=== PATIENT | male | born 1975 | race Caucasian/White ===

== ENCOUNTER 2020-04-19 19:43 | Observation (INO) | payer BC ==
[2020-04-19 21:36] LABS: Absolute Lymphocytes (CBC) 3.6 K/uL (0.7-4.9); Basophils % 0.4 % (0-1.3); Hematocrit 41.5 % (39.6-49.0); MPV 8.3 fL (7.6-11.3); RBC Red Blood Cell Count 4.75 M/uL (4.33-5.43)
[2020-04-19 21:40] LABS: Protime INR 1.03
[2020-04-19 22:05] LABS: ALT/SGPT 47 U/L (12-78); AST/SGOT 22 U/L (15-37); Albumin 3.9 g/dL (3.4-5.0); Alkaline Phosphatase 58 U/L (45-117); BUN Blood Urea Nitrogen 14 mg/dL (7-18); Bicarbonate 26 mmol/L (21-32); Bilirubin Direct 0.1 mg/dL (0-0.2); Bilirubin Total 0.3 mg/dL (0.2-1.0); Glucose Level 103 mg/dL (74-106); Magnesium 2.4 mg/dL (1.8-2.4); NT PRO-BNP 80 pg/mL (<125); Potassium 3.5 mmol/L (3.5-5.1); Protein, Total 7.6 g/dL (6.4-8.2); Sodium Level 140 mmol/L (136-145); Troponin (Emerg Dept Use Only) < 0.02 ng/mL (0.0-0.045)
--- NOTE | 2020-04-19 22:24 | EDPHYS ---
Physician Documentation [facility] Name: Hugo Salinas Age: 44 yrs Sex: Male : 1975 Arrival Date: 04/19/2020 Time: 19:45 Bed 20 Private MD: ED Physician Joshua Mustafa HPI: 04/19 21:18 This 44 yrs old Male presents to ER via Ambulatory with complaints of High kb Blood Pressure. 21:18 The patient has elevated blood pressure and discovered this at home, with a home kb device. Onset: The symptoms/episode began/occurred this morning, at 08:30. Associated signs and symptoms: Pertinent positives: chest pain, Pertinent negatives: dizziness, dyspnea, headache, lightheadedness, nausea, visual changes, vomiting, weakness. Severity of symptoms: At its worst the blood pressure was moderate, in the emergency department the blood pressure is improved. The patient has not experienced similar symptoms in the past. The patient has not recently seen a physician. Pt states he started prednisone and augmentin yesterday for an ear infection. STarted feeling flush with chest pressure this morning around 8:30-9. Started checking his blood pressure at noon and it has been high all day, then it was 200/100 so made him come in to get evaluated. . Historical: - Allergies: 19:51 No Known Allergies; ll1 - PMHx: 19:51 Hypertension; Heart Murmur; ll1 - Immunization history:: Flu vaccine is not up to date. - Social history:: Smoking status: Patient/guardian denies using tobacco, Stopped _ months ago 9 Patient uses alcohol, only on a social basis. Patient/guardian denies using street drugs. ROS: 21:01 Constitutional: Negative for fever, chills, and weight loss, Respiratory: Negative for kb shortness of breath, cough, wheezing, and pleuritic chest pain, Abdomen/GI: Negative for abdominal pain, nausea, vomiting, diarrhea, and constipation, Back: Negative for injury and pain, MS/Extremity: Negative for injury and deformity, Skin: Negative for injury, rash, and discoloration, Neuro: Negative for headache, weakness, numbness, tingling, and seizure. 21:01 Cardiovascular: Positive for chest pain, Negative for edema, orthopnea, palpitations, paroxysmal nocturnal dyspnea. Exam: 21:01 Constitutional: This is a well developed, well nourished patient who is awake, alert, kb and in no acute distress. Head/Face: Normocephalic, atraumatic. Chest/axilla: Normal chest wall appearance and motion. Nontender with no deformity. No lesions are appreciated. Cardiovascular: Regular rate and rhythm with a normal S1 and S2. No gallops, murmurs, or rubs. Normal PMI, no JVD. No pulse deficits. Respiratory: Lungs have equal breath sounds bilaterally, clear to auscultation and percussion. No rales, rhonchi or wheezes noted. No increased work of breathing, no retractions or nasal flaring. Abdomen/GI: Soft, non-tender, with normal bowel sounds. No distension or tympany. No guarding or rebound. No evidence of tenderness throughout. Skin: Warm, dry with normal turgor. Normal color with no rashes, no lesions, and no evidence of cellulitis. MS/ Extremity: Pulses equal, no cyanosis. Neurovascular intact. Full, normal range of motion. Neuro: Awake and alert, GCS 15, oriented to person, place, time, and situation. Cranial nerves II-XII grossly intact. Motor strength 5/5 in all extremities. Sensory grossly intact. Cerebellar exam normal. Normal gait. 22:24 ECG was reviewed by the Attending Physician. Vital Signs: 19:49 BP 180 / 76; Pulse 111; Resp 18; Temp 98.3; Pulse Ox 100% ; Pain 1/10; ll1 20:30 BP 153 / 73; Pulse 101; Resp 17; Pulse Ox 99% ; ah 21:15 BP 141 / 77; Pulse 73; Resp 23; Pulse Ox 100% ; ah 21:44 BP 131 / 75; Pulse 74; Resp 17; Pulse Ox 99% ; ll1 23:33 BP 139 / 79; Pulse 66; Resp 18; Pulse Ox 99% ; ll1 04/20 00:19 BP 123 / 83; Pulse 65; Resp 18; Pulse Ox 100% on R/A; mg2 00:42 BP 120 / 68; Pulse 62; Resp 18; Temp 98.6; Pulse Ox 100% on R/A; mg2 MDM: 04/19 20:22 Patient medically screened. kb 21:01 Data reviewed: vital signs, nurses notes. Data interpreted: Pulse oximetry: on room air kb is 99 %. Interpretation: normal. 22:20 Counseling: I had a detailed discussion with the patient and/or guardian regarding: the kb historical points, exam findings, and any diagnostic results supporting the discharge/admit diagnosis, lab results, radiology results, the need for further work-up and treatment in the hospital. Physician consultation: Alexandre Dunham was contacted at 22:21, regarding admission, to the telemetry unit. patient's condition, and will see patient in ED, shortly. 22:23 ED course: Pt has strong family history of IN. Uncle's first IN was at age 40, father's kb first IN at age 60. Discussed with ERP and recommends admission for further cardiac evaluation. 04/19 20:27 Order name: Basic Metabolic Panel kb 04/19 20: Order name: CBC with Diff; Complete Time: 21:44 kb 04/19 20:27 Order name: LFT's; Complete Time: 22:16 kb 04/19 20:27 Order name: Magnesium; Complete Time: 22:16 kb 04/19 20:27 Order name: NT PRO-BNP; Complete Time: 22:16 kb 04/19 20:27 Order name: PT-INR; Complete Time: 21:44 kb 04/19 20:27 Order name: Troponin (emerg Dept Use Only); Complete Time: 22:16 kb 04/19 20:27 Order name: XRAY Chest (1 view) kb 04/19 20:27 Order name: EKG; Complete Time: 20:28 kb 04/19 20:27 Order name: Cardiac monitoring; Complete Time: 20:44 kb 04/19 20:27 Order name: EKG - Nurse/Tech; Complete Time: 20:44 kb 04/19 20:27 Order name: IV Saline Lock; Complete Time: 21:19 kb 04/19 20:28 Order name: Basic Metabolic Panel; Complete Time: 22:16 EDMS 04/19 20:27 Order name: Labs collected and sent; Complete Time: 21:19 kb 04/19 20:27 Order name: O2 Per Protocol; Complete Time: 20:44 kb 04/19 20:27 Order name: O2 Sat Monitoring; Complete Time: 20:44 kb EC:24 Rate is 78 beats/min. Rhythm is regular. QRS [place] is Normal. MT interval is normal at kb 144 msec. QRS interval is normal at 96 msec. QT interval is normal at 384 msec. Administered Medications: : Not Given (Took aspirin 650 mg PO at home at 1930 tonight. SUMIT Byrnes informed.): ll1 Aspirin Chewable Tablet 324 mg PO once; 81 mg tablets x 4 Disposition: 04/20 03:52 Co-signature as Attending Physician, Joshua Mustafa MD I agree with the assessment and tw4 plan of care. Disposition: 04/19/20 22:23 Hospitalization ordered by Alexandre Dunham for Observation. Preliminary diagnosis is Chest pain, unspecified. - Bed requested for Telemetry/MedSurg (observation). - Status is Observation. mg2 - Condition is Stable. - Problem is new. - Symptoms are unchanged. Signatures: Dispatcher [employer] EDMS Suzy Hill, SUMIT-C SUMIT-CkBere Mae, RN RN cg Joshua Mustafa MD MD tw4 Elias Goodman RN RN mg2 Obey Garner RN RN ll1 Corrections: (The following items were deleted from the chart) 00:32 04/19 22:23 Hospitalization Ordered by Alexandre Dunham for Observation. Preliminary cg diagnosis is Chest pain, unspecified. Bed requested for Telemetry/MedSurg (observation). Status is Observation. Condition is Stable. Problem is new. Symptoms are unchanged. kb 04/20 01:19 00:32 04/19/2020 22:23 Hospitalization Ordered by Alexandre Dunham for Observation. mg2 Preliminary diagnosis is Chest pain, unspecified. Bed requested for Telemetry/MedSurg (observation). Status is Observation. Condition is Stable. Problem is new. Symptoms are unchanged. cg
--- NOTE | 2020-04-19 22:24 | ER ---
Nurse's Notes [facility] Name: Hugo Salinas Age: 44 yrs Sex: Male : 1975 Arrival Date: 04/19/2020 Time: 19:45 Bed 20 Private MD: Diagnosis: Chest pain, unspecified Presentation: 04/19 19:49 Chief complaint: Patient states: High blood pressure for 1 days. On Augmentin for ear ll1 infection, started last night with steroid. BP 210/107 at home. Coronavirus screen: Proceed with normal triage. Patient denies a cough. Patient denies shortness of breath or difficulty breathing. Patient denies measured and/or subjective temperature greater than 100.4F prior to today's visit. Patient denies travel on a cruise ship or to a country the [facility] currently lists as an affected area. Patient denies contact with known and/or suspected case of COVID-19. Ebola Screen: Patient denies travel to an Ebola-affected area in the 21 days before illness onset. Initial Sepsis Screen: Does the patient meet any 2 criteria? HR > 90 bpm. No. Patient's initial sepsis screen is negative. Risk Assessment: Do you want to hurt yourself or someone else? Patient reports no desire to harm self or others. Onset of symptoms was April 19, 2020. 19:49 Method Of Arrival: Ambulatory ll1 19:49 Acuity: CRISTINA 2 ll1 20:47 Initial Sepsis Screen: Does the patient have a suspected source of infection? No. ah Patient's initial sepsis screen is negative. Historical: - Allergies: 19:51 No Known Allergies; ll1 - PMHx: 19:51 Hypertension; Heart Murmur; ll1 - Immunization history:: Flu vaccine is not up to date. - Social history:: Smoking status: Patient/guardian denies using tobacco, Stopped _ months ago 9 Patient uses alcohol, only on a social basis. Patient/guardian denies using street drugs. Screenin:47 Abuse screen: Denies threats or abuse. Nutritional screening: No deficits noted. Tuberculosis screening: No symptoms or risk factors identified. Fall Risk None identified. Assessment: 20:44 General: Appears uncomfortable, Behavior is calm, cooperative, appropriate for age. Pain: Complains of pain in chest Quality of pain is described as pressure, Pain began 0800 today Is continuous. Neuro: Level of Consciousness is awake, alert, obeys commands, Oriented to person, place, time, situation, Appropriate for age. Cardiovascular: Heart tones S1 S2 present Capillary refill < 3 seconds Patient's skin is warm and dry. Pulses are palpable in right radial artery and left radial artery Rhythm is sinus rhythm. Respiratory: Airway is patent Respiratory effort is even, unlabored, Respiratory pattern is regular, symmetrical. Derm: Skin is intact, is healthy with good turgor, Skin temperature is warm. 21:32 Reassessment: Patient and/or family updated on plan of care and expected duration. Pain ah level reassessed. Patient is alert, oriented x 3, equal unlabored respirations, skin warm/dry/pink. awaiting lab and radiology results. No needs voiced at this time. at bedside. 22:00 Reassessment: Patient appears in no apparent distress at this time. No changes from ll1 previously documented assessment. Patient and/or family updated on plan of care and expected duration. Pain level reassessed. Patient is alert, oriented x 3, equal unlabored respirations, skin warm/dry/pink. 23:00 Reassessment: Patient appears in no apparent distress at this time. No changes from ll1 previously documented assessment. Patient and/or family updated on plan of care and expected duration. Pain level reassessed. Patient is alert, oriented x 3, equal unlabored respirations, skin warm/dry/pink. Vital Signs: 19:49 BP 180 / 76; Pulse 111; Resp 18; Temp 98.3; Pulse Ox 100% ; Pain 1/10; ll1 20:30 BP 153 / 73; Pulse 101; Resp 17; Pulse Ox 99% ; ah 21:15 BP 141 / 77; Pulse 73; Resp 23; Pulse Ox 100% ; ah 21:44 BP 131 / 75; Pulse 74; Resp 17; Pulse Ox 99% ; ll1 23:33 BP 139 / 79; Pulse 66; Resp 18; Pulse Ox 99% ; ll1 04/20 00:19 BP 123 / 83; Pulse 65; Resp 18; Pulse Ox 100% on R/A; mg2 00:42 BP 120 / 68; Pulse 62; Resp 18; Temp 98.6; Pulse Ox 100% on R/A; mg2 ED Course: 04/19 19:45 Patient arrived in ED. cl3 19:51 Triage completed. ll1 19:52 Arm band placed on Patient placed in an exam room, on a stretcher. ll1 20:22 Suzy Hill FNP-C is [facility]. kb 20:22 Joshua Mustafa MD is Attending Physician. kb 20:44 Michelle Goins, RN is Primary Nurse. 20:47 Patient has correct armband on for positive identification. Bed in low position. Call light in reach. Side rails up X 1. Adult w/ patient. monitoring tech on. Pulse ox on. NIBP on. 20:51 XRAY Chest (1 view) In Process Unspecified. EDMS 21:05 Missed attempt(s): 20 gauge in right antecubital area. Bleeding controlled, band aid jp3 applied, catheter tip intact. 21:10 Missed attempt(s): 20 gauge in left antecubital area. Bleeding controlled, band aid jp3 applied, catheter tip intact. 21:25 Initial lab(s) drawn, by il, sent to lab. EKG done, by ED staff, reviewed by Suzy BIGGS. Inserted saline lock: 20 gauge in left hand, using aseptic technique. Blood collected. Patient maintains SpO2 saturation greater than 95% on room air. 21:43 Report received from Michelle Goins RN. ll1 22:22 Alexandre Dunham is Hospitalizing Provider. kb 23:34 No provider procedures requiring assistance completed. Patient admitted, IV remains in ll1 place. Administered Medications: 22:25 Not Given (Took aspirin 650 mg PO at home at 1930 tonight. SUMIT Byrnes informed.): ll1 Aspirin Chewable Tablet 324 mg PO once; 81 mg tablets x 4 Outcome: 22:23 Decision to Hospitalize by Provider. kb 04/20 00:49 Admitted to Med/surg accompanied by tech, via wheelchair, room 217, with chart, Report mg2 called to QUINTON Coughlin Condition: stable Instructed on the need for admit, Demonstrated understanding of instructions. 01:19 Patient left the ED. mg2 Signatures: Dispatcher [employer] EDVA Suzy Hill FNP-C FNP-Elias Alvarado RN RN mg2 Isma Casillas Charde 3 Michelle Goins RN RN Obey Garner RN RN ll1 Corrections: (The following items were deleted from the chart) 04/19 21:30 19:49 Chief complaint: Patient states: High blood pressure for 1 days. On Augmentin for ll1 ear infection, started last night with steroid. BP 210/107 ll1
--- NOTE | 2020-04-20 00:19 | P.HP ---
Certification for Inpatient Patient admitted to: Observation With expected LOS: <2 Midnights Practitioner: I am a practitioner with admitting privileges, knowledge of patient current condition, hospital course, and medical plan of care. Services: Services provided to patient in accordance with Admission requirements found in Title 42 Section 412.3 of the Code of Federal Regulations Patient History Date of Service: 04/19/20 Reason for admission: Chest discomfort, high blood pressure History of Present Illness: 44-year-old gentleman with no known past medical history presented emergency department due to high blood pressure recorded at home. Patient reports his systolic blood pressure was as high as 200. He was experiencing blurriness of vision along with chest discomfort. He describes this chest discomfort as heart burn. He denied any headache. He denied any nausea or vomiting. His systolic blood pressure in the ED was 200. EKG demonstrated left ventricular hypertrophy an inverted T-waves. His systolic blood pressure had improved to the 130s during my examination Patient is placed under observation for ACS rule out . Allergies No Known Allergies Allergy (Unverified 04/20/20 00:42) Home Medications: Amlodipine [Norvasc*] 5 mg PO DAILY #30 tab 04/20/20 Amoxicillin/Potassium Clav [Amox-Clav 875-125 mg Tablet] 1 each PO Q12H 04/20/20 Aspirin [Aspirin EC 81 MG] 81 mg PO DAILY #30 tablet. 04/20/20 - Past Medical/Surgical History -: None - Family History Father -: Heart disease - Social History Smoking Status: Former smoker Alcohol use: No CD- Drugs: No Place of Residence: Home Review of Systems Other: Except as documented, all other systems reviewed and negative. Physical Examination - Physical Exam General: Alert, In no apparent distress, Oriented x3 HEENT: Mucous membr. moist/pink Neck: Supple, JVD not distended Respiratory: Clear to auscultation bilaterally, Normal air movement Cardiovascular: No edema, Regular rate/rhythm, Normal S1 S2 Gastrointestinal: Normal bowel sounds, Soft and benign, Non-distended, No tenderness Musculoskeletal: No swelling, No erythema Integumentary: No rashes Neurological: Normal speech, Normal strength at 5/5 x4 extr - Studies Laboratory Data (last 24 hrs) 04/19/20 21:09: PT 12.2, INR 1.03 04/19/20 21:09: WBC 11.2 H, Hgb 13.9, Hct 41.5, Plt Count 257 04/19/20 21:09: Sodium 140, Potassium 3.5, BUN 14, Creatinine 1.02, Glucose 103, Magnesium 2.4, Total Bilirubin 0.3, AST 22, ALT 47, Alkaline Phosphatase 58 Assessment and Plan - Problems (Diagnosis) (1) Accelerated hypertension Current Visit: Yes Status: Acute (2) Chest discomfort Current Visit: Yes Status: Acute (3) Abnormal EKG Current Visit: Yes Status: Acute - Plan Place patient under observation. Trend troponin Obtain echocardiogram I suspect patient has longstanding hypertension leading to LVH Start amlodipine. Hydralazine p.r.n. for BP spikes. - Advance Directives Does patient have a Living Will: No Does patient have a Durable POA for Healthcare: No
[2020-04-20 02:36] VITALS: BMI 38.5
[2020-04-20 02:49] LABS: HDL Cholesterol 41 mg/dL (40-60); LDL Cholesterol, Calculated 147 (<130); Troponin I < 0.02 ng/mL (0.0-0.045)
--- NOTE | 2020-04-20 06:49 | EKG ---
Test Date: 2020-04-19 Test Time: 21:16:38 Bus Assistant: ALPESH MEASUREMENT RESULTS: Intervals: Rate: 78 TX: 144 QRSD: 96 QT: 384 QTc: 437 [place]: P: 44 TX: 144 QRS: 75 T: -42 INTERPRETIVE STATEMENTS: Normal sinus rhythm Possible Left atrial enlargement Left ventricular hypertrophy T wave abnormality, consider inferior ischemia T wave abnormality, consider anterolateral ischemia Abnormal ECG Compared to ECG 07/31/2009 19:49:30 No significant changes Electronically Signed On 04-20-20 06:47:54 CDT by Dioni Galicia
--- NOTE | 2020-04-20 07:11 | RAD REPORT ---
EXAM DESCRIPTION: RAD - Chest Single View - 04/19/2020 8:50 pm CLINICAL HISTORY: CHEST PAIN COMPARISON: Two view chest November 2019 TECHNIQUE: AP portable chest image was obtained 04/19/2020 8:50 pm . FINDINGS: Lungs are clear. Heart and vasculature are normal. No measurable pleural effusion and no p neumothorax. No acute bony abnormality seen. No acute aortic findings suspected. No significant erazo e from comparison. IMPRESSION: No acute cardiopulmonary process.
--- NOTE | 2020-04-20 07:43 | P.DS ---
Admission Date: 04/20/20 Discharge Date: 04/20/20 Disposition: ROUTINE DISCHARGE Reason for Admission: Chest discomfort, high blood pressure - Problems (1) Accelerated hypertension Status: Acute (2) Chest discomfort Status: Acute (3) Abnormal EKG Status: Acute Brief History of Present Illness: 44-year-old gentleman with no known past medical history presented emergency department due to high blood pressure recorded at home. Patient reports his systolic blood pressure was as high as 200. He was experiencing blurriness of vision along with chest discomfort. He describes this chest discomfort as heart burn. He denied any headache. He denied any nausea or vomiting. His systolic blood pressure in the ED was 200. EKG demonstrated left ventricular hypertrophy an inverted T-waves. His systolic blood pressure had improved to the 130s during my examination. Patient was placed under observation for ACS rule out . Hospital Course: Patient placed under observation. Troponin trended came back negative. His blood pressure fluctuated with monitoring. Lipid profile showed an LDL of 147. Lifestyle modification with diet and weight loss recommended. Target LDL of 100. Echocardiogram performed resulted normal EF and no wall motion abnormality. Patient was symptom-free during the hospital stay. He is deemed clinically stable for discharge. Vital Signs/Physical Exam: Temp Pulse Resp BP Pulse Ox 97.5 F 88 18 181/88 H 93 04/20/20 02:17 04/20/20 02:17 04/20/20 02:17 04/20/20 02:17 04/20/20 02:17 General: Alert, In no apparent distress HEENT: Mucous membr. moist/pink Neck: JVD not distended Respiratory: Clear to auscultation bilaterally, Normal air movement Cardiovascular: No edema, Regular rate/rhythm, Normal S1 S2 Gastrointestinal: Normal bowel sounds, Soft and benign, No tenderness Laboratory Data at Discharge: WBC 11.2 K/uL (4.3-10.9) H 04/19/20 21:09 Hgb 13.9 g/dL (13.6-17.9) 04/19/20 21:09 Hct 41.5 % (39.6-49.0) 04/19/20 21:09 Plt Count 257 K/uL (152-406) 04/19/20 21:09 PT 12.2 SECONDS (9.5-12.5) 04/19/20 21:09 INR 1.03 04/19/20 21:09 Sodium 140 mmol/L (136-145) 04/19/20 21:09 Potassium 3.5 mmol/L (3.5-5.1) 04/19/20 21:09 BUN 14 mg/dL (7-18) 04/19/20 21:09 Creatinine 1.02 mg/dL (0.55-1.3) 04/19/20 21:09 Glucose 103 mg/dL (74-106) 04/19/20 21:09 Magnesium 2.4 mg/dL (1.8-2.4) 04/19/20 21:09 Total Bilirubin 0.3 mg/dL (0.2-1.0) 04/19/20 21:09 AST 22 U/L (15-37) 04/19/20 21:09 ALT 47 U/L (12-78) 04/19/20 21:09 Alkaline Phosphatase 58 U/L (45-117) 04/19/20 21:09 Troponin I < 0.02 ng/mL (0.0-0.045) 04/20/20 05:40 Triglycerides 135 mg/dL (<150) 04/20/20 02:12 Cholesterol 215 mg/dL (<200) H 04/20/20 02:12 HDL Cholesterol 41 mg/dL (40-60) 04/20/20 02:12 Cholesterol/HDL Ratio 5.24 04/20/20 02:12 Home Medications: Amlodipine [Norvasc*] 5 mg PO DAILY #30 tab 04/20/20 Amoxicillin/Potassium Clav [Amox-Clav 875-125 mg Tablet] 1 each PO Q12H 04/20/20 Aspirin [Aspirin EC 81 MG] 81 mg PO DAILY #30 tablet. 04/20/20 New Medications: Aspirin [Aspirin EC 81 MG] 81 mg PO DAILY #30 tablet. Amlodipine [Norvasc*] 5 mg PO DAILY #30 tab Followup: Dioni Galicia MD [ACTIVE - CAN ADMIT] - (Call to make an appointment. )
[2020-04-20] MEDS ORDERED: ASPIRIN EC 81 MG TAB PO SCH (09:00)
[2020-04-20] MEDS ORDERED: ENOXAPARIN 40 MG/0.4 ML SQ SCH (09:00)
[2020-04-20] MEDS ORDERED: AMLODIPINE 5 MG TAB PO SCH (09:00)
[2020-04-20 11:50] VITALS: O2SAT 98
[2020-04-20 16:22] VITALS: BP 134/75; TEMP 97.9
--- NOTE | 2020-04-21 12:39 | CON ---
Date of Consultation: 04/20/2020 Reason For Consultation: Chest pain. History Of Present Illness: Mr. Salinas is a 44-year-old white male, has a strong family history of h eart disease. Has had family members who had heart attacks in the 40s. He has a history of hyperten colin and has been told that he had heart murmur and palpitations in the past. No previous cardiac wo rkup. He came into the emergency room with some substernal chest pressure, anxiety, and blood pressu re 200/100 in the emergency room. He was found to have an EKG showing left ventricular hypertrophy. He had a cholesterol of 215. His LDL was 147. He had a white count of 11,000. The rest of the blo od work was negative. He has recently had what sounds like a sinus or ear infection with stuffiness, but no fever and no chills. His chest pain was not exertional. It did not radiate. He did not hav e any nausea or vomiting or diaphoresis. Denied PND, orthopnea, pedal edema, palpitations, or syncop e. He is pain free now. Echocardiogram which was done already was normal. Past Medical History: As stated above. Allergies: NONE. Review of Systems: Negative. Social History: Negative for tobacco. Family History: Positive for heart disease at early age. Medications: He does not take any medications at home. Physical Examination: General: Very pleasant man. No acute distress. Vital Signs: Last blood pressure was 134/75. Vital signs were stable, afebrile, sinus rhythm. HEENT: Negative. Neck: Supple without any bruit, lymphadenopathy, JVD, or thyromegaly. Chest: Clear to auscultation and percussion. Cardiac: Revealed a regular rhythm and rate. No murmurs, gallops, or rubs. Abdomen: Benign. Extremities: Revealed no clubbing, cyanosis, or edema. Diagnostic Data: As stated earlier. Impression And Plan: This is a gentleman with chest tightness, severe hypertension. He asserted ling t the chest pain could be related to hypertension. He also has some anxiety and panic disorder that he admits to that has been untreated. He has dyslipidemia, abnormal EKG. He has a very strong famil y history. He apparently needs to be on a low-fat, low-cholesterol diet and needs to try to lose mo e weight, watch his salt intake. We will need to put him on antihypertensive medication and I think Norvasc may be a good choice. He has already been on that since he has been in the hospital. We shayy rodríguez also put him on Xanax 0.25 mg every 8 hours as needed. I am comfortable with him going home. We w ill set him up to have a stress test Cardiolite in my office in the near future. KVNG/MARITA Voice ID: [id number] Report ID: [id number]
--- NOTE | 2020-04-23 08:41 | ECHO ---
HEIGHT: 6 ft 1 in WEIGHT: 292 lb 8 oz DATE OF STUDY: 04/20/[address]: casimiro kim 2-DIMENSIONAL: YES M.MODE: YES DOPPLER: YES COLOR FLOW: YES TDS: YES PORTABLE: NO DEFINITY: NO BUBBLE STUDY: NO DIAGNOSIS: LEFT VENTRICULAR HYPERTROPHY CARDIAC HISTORY: CATHERIZATION: NO SURGERY: NO PROSTHETIC VALVE: NO PACEMAKER: NO MEASUREMENTS (cm) DIASTOLIC (NORMALS) SYSTOLIC (NORMALS) IVSd 1.0 (0.6-1.2) LA Diam 2.9 (1.9-4.0) LVEF 67% LVIDd 4.2 (3.5-5.7) LVIDs 2.6 (2.0-3.5) %FS 37% LVPWd 1.1 (0.6-1.2) Ao Diam 2.5 (2.0-3.7) 2 DIMENSIONAL ASSESSMENT: RIGHT ATRIUM: NORMAL LEFT ATRIUM: NORMAL RIGHT VENTRICLE: NORMAL LEFT VENTRICLE: NORMAL TRICUSPID VALVE: NORMAL MITRAL VALVE: NORMAL PULMONIC VALVE: NORMAL AORTIC VALVE: NORMAL PERICARDIAL EFFUSION: NONE AORTIC ROOT: NORMAL LEFT VENTRICULAR WALL MOTION: NORMAL DOPPLER/COLOR FLOW: NORMAL COMMENTS: NORMAL 2D ECHOCARDIOGRAM WITH DOPPLER. NO EFFUSION. TECHNOLOGIST: Alba DASILVA
== END 2020-04-20 18:39 | disposition home or self-care (01) ==
LOC: ER 19:43 → ERHOLD 04-20 00:35 → 2ND 04-20 00:53
PROVIDERS: ADMIT Internal Medicine; ATTEND Internal Medicine
DX: I11.9 Hypertensive heart disease without heart failure (principal); R07.89 Other chest pain; R94.31 Abnormal electrocardiogram [ECG] [EKG]; E78.5 Hyperlipidemia, unspecified; Z82.49 Family history of ischemic heart disease and other diseases of the circulatory system
CPT/HCPCS: 93005; 93306; 85025; 80048; 36415; 83735; 85610; 80061; 80076; 84484 ×3; 83880; 71045; 99285; J1650; G0378 ×2